=== PATIENT | male | born 1980 | race Caucasian/White ===

== ENCOUNTER → 2020-03-27 15:23 | Outpatient (CLI) | payer OTHER, SELFPAY ==
[2020-03-27 16:10] LABS: Add Manual Diff / Slide Review NO; Basophils Absolute Auto 100 /uL (0-100); Basophils Percent Auto 1.5 % (0-2); Eosinophils Absolute Auto 400 /uL (0-450); Eosinophils Percent Auto 6.5 % (2-4); Hematocrit 44.3 % (41-53); Hemoglobin 15.7 g/dL (13.5-17.5); Lymphocytes Absolute Auto 1600 /uL (1100-4500); Lymphocytes Percent Auto 24.9 % (25-40); Mean Corpuscular HGB Conc 35.4 % (30-36); Mean Corpuscular Hemoglobin 31.4 PG (26-34); Mean Corpuscular Volume 88.8 fL (80-100); Monocytes Absolute Auto 400 /uL (0-900); Monocytes Percent Auto 6.5 % (3-14); Neutrophils Absolute Auto 3900 /uL (1500-7000); Neutrophils Percent Auto 60.6 % (50-75); Platelet Count 206 X10^3/uL (150-400); Red Blood Cell Count 4.98 X10^6/uL (4.5-5.9); Red Cell Distribution Width 12.3 % (11.6-14.8); White Blood Cell Count 6.4 X10^3/uL (4.5-11.0)
[2020-03-27 16:21] LABS: Prothrombin Time 11.7 SECONDS (10.1-12.7)
[2020-03-27 16:28] LABS: Alanine Aminotransferase 36 IU/L (<50); Albumin 4.9 g/dL (3.5-5.0); Albumin Globulin Ratio 1.5 (1.0-2.8); Alkaline Phosphatase 85 U/L (38-126); Aspartate Aminotransferase 32 IU/L (17-59); BUN Creatinine Ratio 14.3 (6-22); Bilirubin Total 0.4 mg/dL (0.2-1.3); Blood Urea Nitrogen 13 mg/dL (9-20); Calcium 9.4 mg/dL (8.4-10.2); Carbon Dioxide 29 mmol/L (22-32); Chloride 102 mmol/L (98-107); Estimated Glomerular Filt Rate > 60.0 mL/min (>60); Globulin 3.3 g/dL (1.7-4.1); Glucose 97 mg/dL (70-100); HEMOLYSIS < 15 (0-50); Potassium 3.9 mmol/L (3.4-5.1); Sodium 138 mmol/L (137-145); Total Protein 8.2 g/dL (6.3-8.2)
[2020-03-28 05:05] LABS: Immunoglobulin G, Quantitative 1158 mg/dL (603-1613)
== END ==
PROVIDERS: Referring Provider Internal Medicine Gastroenterology; Visit Provider Internal Medicine Gastroenterology
DX: K75.4 Autoimmune hepatitis (principal)
CPT/HCPCS: 36415; 80053; 82784; 85025; 85610

== ENCOUNTER → 2020-10-14 09:13 | Outpatient (CLI) | payer OTHER, SELFPAY ==
[2020-10-14 12:51] LABS: COVID19 -Nasal RAPID Negative (Negative)
== END ==
PROVIDERS: PCP Nurse Practitioner Family; Visit Provider Physician Assistant
DX: Z20.822 Contact with and (suspected) exposure to COVID-19 (principal)
CPT/HCPCS: 87635

== ENCOUNTER 2020-10-15 08:52 | Day surgery (SDC) | payer OTHER, SELFPAY ==
[2020-09-07 14:40] VITALS: BMI 26.2
[2020-10-15] VITALS (12 sets, daily range): BP systolic 131–164; BP diastolic 85–110; PULSE 59–671; RESP 10–98; TEMP 36.2–36.9; O2SAT 10–100; BMI 25.7
[2020-10-15] MEDS: LACTATED RINGERS 1,000 ML 42 ML IV ×2 (09:27→12:32)
[2020-10-15] MEDS: OXYMETAZOLINE NASAL SPRAY 15 ML 2 SPRAYS NASAL ×2 (09:27→10:11)
--- NOTE | 2020-10-15 09:30 | PM.PREOP ---
Pre-operative Note COVID-19 COVID-19 status: Result pending Interval Note History & Physical reviewed/Exam performed by Physician: Yes Changes to H&P: No
--- NOTE | 2020-10-15 09:30 | PM.HP.1 ---
History of Present Illness History of Present Illness Date Patient Seen: 10/15/20 Time Patient Seen: 09:30 Chief complaint: TURBINATE REDUCTION & POSSIBLE SEPTOPLASTY Narrative: 40-year-old male with chronic nasal airway obstruction, incompletely managed with medical therapy, with turbinate hypertrophy and at least mild septal deviation, possible internal nasal valve restriction, presents for operative intervention. Last seen in clinic 09/09/2020, note reviewed, no interval changes although he describes himself as ?bleeding easily?, no medical diagnosis, noted after wisdom tooth extraction but not from minor trauma. History of autoimmune hepatitis, cannot take Tylenol but will manage with ibuprofen and oxycodone if necessary. Continues azathioprine. Patient History Medical History Autoimmune hepatitis ETD (eustachian tube dysfunction) Nasal obstruction Nasal septal deviation PND (post-nasal drip) Surgical History History of liver biopsy (2014) History of surgery (07/02/20) History of vasectomy Family & Social History Social History: household members spouse Tobacco & Substance use: Smoking Status Never smoker alcohol intake current Substance Use Type does not use Meds Home Medications and Allergies Home Medications Medication Instructions Recorded Confirmed Type azathioprine 50 mg tablet (Imuran) 50 mg PO DAILY 09/07/20 10/15/20 History Allergies Allergy/AdvReac Type Severity Reaction Status Date / Time No Known Drug Allergies Allergy Verified 09/07/20 14:55 Review of Systems Review of Systems Narrative: Positive as noted in the HPI, otherwise negative Exam Vital Signs (past 8 hours): - 10/15/20 09:18 Temperature 97.2 F L Pulse Rate 78 Respiratory Rate 20 Blood Pressure 131/85 Pulse Oximetry 100 Oxygen Delivery Method Room Air Narrative Exam Narrative: Well-developed well-nourished male in no acute distress heart regular rate rhythm without murmur, lungs clear to auscultation bilaterally Assessment & Plan Assessment & Plan narrative: Assessment: Nasal airway obstruction, septal deviation, inferior turbinate hypertrophy, possible internal nasal valve restriction Plan: Following discussion of the material risks benefits complications and alternatives, he elected to proceed with septoplasty, inferior turbinate reduction, and possible internal nasal valve release. Time Spent With Patient Critical Care time: I spent a total of [] minutes of critical care time on this patient's care today; this time is exclusive of procedural time.
--- NOTE | 2020-10-15 09:34 | P.OP_ITS ---
Operative Date/Time/Diagnoses Date of procedure: 10/15/20 Time of procedure: 11:36 Pre-op diagnosis: Nasal airway obstruction, septal deviation, inferior turbinate hypertrophy, possible internal nasal valve restriction Post-op diagnosis: same (LEFT internal nasal valve restriction) Procedure & Clinicians Procedure: 1. Septoplasty 2. Bilateral Inferior turbinate reduction via intramural cautery 3. LEFT internal nasal valve release Same procedure as scheduled: Yes Indications: 32-year-old male with the above diagnoses incompletely managed with medical therapy presents for the above procedures. Following discussion of the material risks benefits complications and alternatives, the patient elected to proceed. Surgeon: Pool Howe Click Yes if Unassisted: Yes Anesthesia Type: General and Local Operative Notes Findings: One to 2+ left septal deviation, left greater than right inferior turbinate hypertrophy Closure Type: primary Estimated Blood Loss (mL): 110 Procedure in detail: Following identification and confirmation of consent as well as preoperative Afrin nasal spray, the patient was brought to the operating room suite and placed in the supine position. General endotracheal anesthesia was administered. I infiltrated the septum widely bilaterally with 1% lidocaine 1 100,000 epinephrine followed by temporary packing with cotton with Afrin and 4% lidocaine. Following sterile prep and drape, the packing was removed and I performed a right melonie-transfixion incision, elevated the right mucoperichondrial and mucoperiosteal flap. I disarticulated near the bony/cartilaginous junction and elevated the left mucoperiosteal flap. Deviated portions of the perpendicular plate of the ethmoid and vomer were resected. The residual quadrilateral cartilage was further straightened by trimming it inferiorly as well as reducing the maxillary crest. A 2 mm strip of cartilage paralleling the residual 1 cm dorsal and caudal strut was resected to further straighten the quadrilateral cartilage. The hemitransfixion incision was closed with interrupted 5 0 chromic followed by a running 4 0 plain gut mattress suture to reapproximate the septal flaps. At case completion, 20/1000th of an inch silastic splints were placed bilaterally, sutured anteriorly with a single 4 0 nylon. The head of each inferior turbinate had been previously infiltrated with additional local anesthetic and a 25 gauge spinal needle was used to impale the length of the turbinate over 2 passes, with cautery on a setting of 15 activated on slow withdrawal. The turbinates were then outfractured. After completing the septoplasty, the LEFT INV was moderately restricted, whereas the RIGHT was entirely patent. The scroll region including the caudal end of the LEFT upper lateral cartilage was infiltrated with additional local anesthetic, and a 15 blade incised down to the caudal edge. 2mm of cartilage wa s resected to restore patency of the valve, then 2mm of redundant mucosa was trimmed before closing the mucosa with interrupted 5-0 chromic. The procedure completed, sponge and needle counts were correct and the patient was extubated in the operating room and taken to recovery room in stable condition without known complication. Postoperative care: Nasal saline every hour while awake, Vaseline or Polysporin to the nostrils at all times, begin irrigations t.i.d. beginning pod 1. Humidifier at the bedside blowing on the face. Tylenol alternating with Advil for pain control, oxycodone if necessary for breakthrough pain. Post-operative Condition: stable Disposition: same day surgery Plan for aftercare: Nasal saline every hour while awake, begin irrigations t.i.d. tomorrow if desired. Polysporin to the nostrils at all times, Advil for pain control, oxycodone for breakthrough pain. Elevate head of bed, no nose blowing, no straining for 2 weeks. Ice to upper lip and nasal dorsum if desired. Follow-up in 1 week for nasal splint removal.
[2020-10-15] MEDS: LIDOCAINE 1% W/EPI 20 ML INJ (10:11)
[2020-10-15] MEDS: LIDOCAINE 4% SOLN 50 ML 20 ML TOP (10:11)
[2020-10-15] MEDS: BACITRACIN OINT 0.9 GM PCKT 1 APPLIC TOP (10:20)
--- NOTE | 2020-10-15 10:20 | SUR.OPER ---
Addendum entered by Inessa Phipps R.N. 10/15/20 10:20: Gel pad under heels. Original Note: Supine on padded OR bed, head on pillow, arms padded and tucked at sides, legs uncrossed, safety belt at thigh, tape over blanket over lower legs. Pillow under knees.
[2020-10-15] MEDS: OXYCODONE IR 5 MG TABLET PO (12:20)
[2020-10-15] MEDS: fentaNYL 100 MCG/2 ML INJ IV (12:30)
[2020-10-15] MEDS: LABETALOL 20 MG/4 ML SYRINGE 10 MG IV (13:05)
--- NOTE | 2020-10-15 13:12 | SUR.PHASEI ---
Report to RAHEL Corey.
== END 2020-10-15 13:50 | disposition home or self-care (01) ==
PROVIDERS: PCP Nurse Practitioner Family; Referring Provider Otolaryngology; Visit Provider Otolaryngology
PROC: (CPT 30520; principal; 2020-10-15 09:45)
DX: J34.2 Deviated nasal septum (principal); J34.89 Other specified disorders of nose and nasal sinuses; J34.3 Hypertrophy of nasal turbinates
CPT/HCPCS: 30520; 30802; J1100; J2250; J2405; J2704; J3010

== ENCOUNTER → 2022-01-07 09:32 | Outpatient (ROUT) | payer OTHER, SELFPAY ==
[2022-01-07 09:39] LABS: INR 1.1 (0.9-1.3); Prothrombin Time 12.4 SECONDS (10.1-12.7)
== END ==
PROVIDERS: PCP Nurse Practitioner Family; Visit Provider Family Medicine
DX: K92.1 Melena (principal)
CPT/HCPCS: 85610